=== PATIENT | male | born 1955 | race Caucasian/White ===

== ENCOUNTER 2016-11-12 19:44 | Observation (INO) | payer MEDICAID ==
[2016-11-12] MEDS: NITROSTAT SL PRN ×2 (20:13→20:59)
[2016-11-12] MEDS: ASPIRIN PO SCH (20:13)
--- NOTE | 2016-11-12 20:15 | DR.CP ---
HPI - Time Seen Time seen: 20:05 - PCP Primary Care Physician: ARAUJO - Complaint Chief Complaint Doctor Comments: Patient presents with c/o chest pain for the past three days worse today; pain radiating down left side of neck w/o diaphoresis. He admits to dyspnea. Stents ten years ago. Patient has NTG but did not take; make him have a headache. Chief Complaint:: MID STERNAL CHEST PAIN RADIATES LEFT NECK, SHORTNESS OF BREATH , CHILLS, NO APPETITE, WEAK, DIZZY FOR THE LAST 3 DAYS Self Treatment fo Chief Complaint: HAS NOT TAKEN HIS NTG BECAUSE IT GIVES HIM A POUNDING HEADACHE - Source History Provided: Patient, Significant Other - Mode of Arrival Mode of Arrival: Ambulatory - Timing Onset of Chief Complaint: 11/09/16 - Duration Duration: Since Onset (three days) How lon (3 days; worse today) Duration: Days - Location Location of Chest Pain: Right, Left Chest Pain Radiation Location: Left Arm - Context Onset: At rest Cardiac Risk Factors: Smoker, Hyperlipidemia, HTN History of: Similar pain in the past, [place], Angioplasty. denies: Aspirin in last 24 hours Prehospital Care: None. denies: Oxygen, SL Nitro, ASA - Quality Quality: Sharp - Severity Severity: Moderate (8) - Modifying Factors Worsens: Exertion Impoves: Nothing - Associated Signs and Symptoms Associated Signs and Symptoms: Shortness of Breath. denies: Diaphoresis, Abdominal Pain, Nausea/Vomiting PMH - PMH Past Medical History: Yes Past Medical History: Anxiety, Arthritis, COPD, Depression, Dyslipidemia, Headaches, [place] Past Medical History Comment: AORTIC ANEURYSM Past Surgical History: Yes Surgical History: Angioplasty/Stents, Ortho Surgery, Other Past Surgical History Comment: LEFT HIP REPLACEMENT, RIGHT WRIST (PLATE) - Family History History of Family Medical Conditions: Yes Family Medical History: Diabetes Mellitus, [place], Coronary Artery Disease - Social History Type of Tobacco Use: Cigarettes Alcohol Use: None Do you use any recreational Drugs:: No Lives With: Spouse Lives Where: Home - infectious screening Have you traveled outside the country in the last 6 months?: No Isolation: Standard ROS - Review of Systems Constitutional: See HPI Eyes: No Symptoms Reported ENTM: No Symptoms Reported Respiratoy: No Symptoms Reported Cardiovascular: No Symptoms Reported Gastrointestinal/Abdominal: No Symptoms Reported Genitourinary: No Symptoms Reported Neurological: No Symptoms Reported Musculoskeletal: No Symptoms Reported Integumentary: No Symptoms Reported Hematologic/Lymphatic: No Symptoms Reported Endocrine: No Symptoms Reported Psychiatric: No Symptoms Reported All Other Systems: Reviewed and Negative PE - Vitals Vitals: Temperature 97.8 F Pulse Rate [Apical] 60 Pulse Rate 70 Respiratory Rate 16 Blood Pressure [Right Arm] 123/76 Blood Pressure 133/79 O2 Sat by Pulse Oximetry 96 - General Limitations: No Limitations General Appearance: Alert, In No Apparent Distress - Head Head Exam: Normal Inspection, Atraumatic - Eyes Eye exam: Normal Appearance, PERRL, EOMI - ENT ENT Exam: Normal Exam - Chest Chest Inspection: Normal Inspection - Respiratory Respiratory Exam: Normal Lung Sounds Bilat Respiratory Exam: Bilateral Clear to Auscultation - Cardiovascular Cardiovascular Exam: Regular Rate, Normal Rhythm Pulse: Normal - Abdominal Exam Abdominal Exam: Normal Inspection Abdominal Tenderness: negative: RUQ, RLQ, LUQ, LLQ, Epigastrium, Suprapubic, Diffuse, Mild, Moderate, Severe, Other - Extremities Extremities Exam: Normal Inspection, Full ROM - Back Back Exam: Normal Inspection, Full ROM - Neurologic Neurological Exam: Alert, Oriented X3, CN II-XII Intact - Psychiatric Psychiatric Exam: Normal Affect, Normal Mood - Skin Skin Exam: Warm, Dry, Intact Course - Reevaluation 1st: Improved ( 2020 pain decreased to 3) - Consultation Called: 21:31 (Admit R/O [place]) ROR - Labs Reviewed Result Diagrams: 11/12/16 20:20 11/12/16 20:20 Laboratory: WBC 6.9 X10^3/uL (3.6-10.0) 11/12/16 20:20 RBC 4.73 X10^6/uL (4.7-6.0) 11/12/16 20:20 Hgb 14.6 g/dL (13.5-18.0) 11/12/16 20:20 Hct 43.6 % (42.0-54.0) 11/12/16 20:20 MCV 92.2 fL (80.0-100.0) 11/12/16 20:20 MCH 30.9 pg (27.0-34.0) 11/12/16 20:20 MCHC 33.5 g/dL (33.0-35.0) 11/12/16 20:20 RDW 12.8 % (11.6-16.5) 11/12/16 20:20 Plt Count 130 X10^3/uL (150.0-450.0) L 11/12/16 20:20 Plt Count Comment Decreased (ADEQUATE) 11/12/16 20:20 MPV 9.2 fL (7.4-11.0) 11/12/16 20:20 Neut % 56.5 % (42.0-75.0) 11/12/16 20:20 Lymph % 28.2 % (21.0-51.0) 11/12/16 20:20 [place] % 9.3 % (0.0-13.0) 11/12/16 20:20 Eos % 4.9 % (0.9-2.9) H 11/12/16 20:20 Baso % 1.1 % (0.2-1.0) H 11/12/16 20:20 Neut # 3.9 x10^3/uL (2.2-4.8) 11/12/16 20:20 Lymph # 2.0 X10^3/uL (1.3-2.9) 11/12/16 20:20 [place] # 0.6 x10^3/uL (0.3-0.8) 11/12/16 20:20 Eos # 0.3 x10^3/uL (0.0-0.2) H 11/12/16 20:20 Baso # 0.1 X10^3/uL (0.0-0.1) 11/12/16 20:20 Absolute Nucleated RBC 0.1 /100WBC 11/12/16 20:20 Plt Morphology Comment Normal (NORMAL) 11/12/16 20:20 RBC Morphology Normal (NORMAL) 11/12/16 20:20 INR Target Range - 11/12/16 20:20 INR 1.11 (0.8-1.3) 11/12/16 20:20 PTT 21.3 SECONDS (22.9-36.5) L 11/12/16 20:20 PTT Comment - 11/12/16 20:20 Sodium 146 mmol/L (136-145) H 11/12/16 20:20 Corrected Sodium TNP 11/12/16 20:20 Potassium 4.1 mmol/L (3.5-5.1) 11/12/16 20:20 Chloride 112 mmol/L (98-107) H 11/12/16 20:20 Carbon Dioxide 25.8 mmol/L (21-32) 11/12/16 20:20 BUN 10 mg/dL (7-18) 11/12/16 20:20 Creatinine 0.94 mg/dL (0.70-1.30) 11/12/16 20:20 Est GFR (MDRD) Af Amer > 60 (>60) 11/12/16 20:20 Est GFR (MDRD) Non-Af > 60 (>60) 11/12/16 20:20 Glucose 91 mg/dL (65-99) 11/12/16 20:20 Calcium 8.7 mg/dL (8.5-10.1) 11/12/16 20:20 Corrected Calcium 9.3 mg/dL (8.5-10.1) 11/12/16 20:20 Phosphorus 3.1 mg/dL (2.6-4.7) 11/12/16 20:20 Total Bilirubin 0.30 mg/dL (0.2-1.0) 11/12/16 20:20 AST 27 Units/L (15-37) 11/12/16 20:20 ALT 39 Units/L (12-78) 11/12/16 20:20 Alkaline Phosphatase 85 Units/L (46-116) 11/12/16 20:20 Creatine Kinase 142 Units/L (39-308) 11/12/16 20:20 CK-MB (CK-2) 1.3 ng/mL (0-4.0) 11/12/16 20:20 CK/CKMB % Calc 0.9 % (<4) 11/12/16 20:20 Troponin I 0.02 ng/mL (0-1.5) 11/12/16 20:20 Total Protein 6.8 g/dL (6.4-8.2) 11/12/16 20:20 Albumin 3.3 g/dL (3.4-5.0) L 11/12/16 20:20 Globulin 3.5 g/dL (2.5-4.5) 11/12/16 20:20 Albumin/Globulin Ratio 0.9 Ratio (1.1-2.1) L 11/12/16 20:20 - XRAY XRAY Interpreted by: Radiologist (Chest: no acute cardiopulmonary disease) - EKG Rhythm: NSR Block: RBBB - Diagnosis Discharge Problem: Chest pain with high risk for cardiac etiology, Chest pain, rule out acute myocardial infarction - Discharge Plan Condition: Stable - Follow ups/Referrals Follow ups/Referrals: ALEXA ARAUJO [Primary Care Provider] - 3 days - Instructions
[2016-11-12] MEDS: NS 1000 ML 1,000 ML IV SCH (20:17)
--- NOTE | 2016-11-12 20:41 | RAD ---
HISTORY: Chest pain Study: Chest one view Comparison: February 29, 2016 Findings: The trachea is midline. The cardiac silhouette is unremarkable. The lungs are clear without focal infiltrate or effusion. The bony thorax is unremarkable. IMPRESSION: 1. No acute cardiopulmonary disease. Reported By:
[2016-11-12 20:42] LABS: BASOPHILS # (AUTO) 0.1 X10^3/uL (0.0-0.1); BASOPHILS % (AUTO) 1.1 % (0.2-1.0); EOSINOPHILS # (AUTO) 0.3 x10^3/uL (0.0-0.2); EOSINOPHILS % (AUTO) 4.9 % (0.9-2.9); HEMATOCRIT 43.6 % (42.0-54.0); HEMOGLOBIN 14.6 g/dL (13.5-18.0); LYMPHOCYTES % (AUTO) 28.2 % (21.0-51.0); MEAN CORPUSCULAR HEMOGLOBIN 30.9 pg (27.0-34.0); MEAN CORPUSCULAR HGB CONC 33.5 g/dL (33.0-35.0); MEAN CORPUSCULAR VOLUME 92.2 fL (80.0-100.0); MEAN PLATELET VOLUME 9.2 fL (7.4-11.0); MONOCYTES # (AUTO) 0.6 x10^3/uL (0.3-0.8); MONOCYTES % (AUTO) 9.3 % (0.0-13.0); NEUTROPHILS # (AUTO) 3.9 x10^3/uL (2.2-4.8); NEUTROPHILS % (AUTO) 56.5 % (42.0-75.0); PLATELET COUNT 130 X10^3/uL (150.0-450.0); RED BLOOD COUNT 4.73 X10^6/uL (4.7-6.0); RED CELL DISTRIBUTION WIDTH 12.8 % (11.6-16.5); WHITE BLOOD COUNT 6.9 X10^3/uL (3.6-10.0)
[2016-11-12 21:02] LABS: ALANINE AMINOTRANSFERASE 39 Units/L (12-78); ALBUMIN 3.3 g/dL (3.4-5.0); ALKALINE PHOSPHATASE 85 Units/L (46-116); ASPARTATE AMINO TRANSFERASE 27 Units/L (15-37); BLOOD UREA NITROGEN 10 mg/dL (7-18); CALCIUM 8.7 mg/dL (8.5-10.1); CARBON DIOXIDE 25.8 mmol/L (21-32); CHLORIDE 112 mmol/L (98-107); CKMB % 0.9 % (<4); COR CA(FOR HYPOALB) 9.3 mg/dL (8.5-10.1); CREATINE KINASE 142 Units/L (39-308); CREATINE KINASE MB 1.3 ng/mL (0-4.0); CREATININE 0.94 mg/dL (0.70-1.30); GLUCOSE 91 mg/dL (65-99); PHOSPHORUS 3.1 mg/dL (2.6-4.7); SODIUM 146 mmol/L (136-145); TOTAL PROTEIN 6.8 g/dL (6.4-8.2); TROPONIN I 0.02 ng/mL (0-1.5); eGFR BLACK RACES > 60 (>60); eGFR NON BLACK RACES > 60 (>60)
[2016-11-12 21:03] LABS: PLATELET MORPHOLOGY COMMENT NORMAL (NORMAL)
[2016-11-12] MEDS ORDERED: MORPHINE SULFATE INJ 4 MG IVP ONE (21:06)
[2016-11-12] MEDS ORDERED: MORPHINE SULFATE INJ 4 MG ONE (21:06)
[2016-11-12] MEDS ORDERED: MORPHINE SULFATE INJ 2 MG IVP ONE (21:34)
[2016-11-12] MEDS ORDERED: MORPHINE SULFATE INJ 2 MG ONE (21:57)
[2016-11-12] MEDS ORDERED: AFLURIA IM ONE (22:44)
[2016-11-12 22:48] VITALS: BMI 27.1
[2016-11-13 03:11] LABS: CKMB % 1.5 % (<4); CREATINE KINASE MB 1.2 ng/mL (0-4.0); TROPONIN I 0.02 ng/mL (0-1.5)
[2016-11-13] MEDS ORDERED: AFLURIA IM ONE (05:34)
[2016-11-13 05:52] LABS: ALANINE AMINOTRANSFERASE 33 Units/L (12-78); ALKALINE PHOSPHATASE 81 Units/L (46-116); ASPARTATE AMINO TRANSFERASE 27 Units/L (15-37); BLOOD UREA NITROGEN 10 mg/dL (7-18); CALCIUM 8.3 mg/dL (8.5-10.1); CHLORIDE 114 mmol/L (98-107); CHOL/HDL RATIO 3.4 (0.0-5.0); CHOLESTEROL 96 mg/dL (0-200); COR CA(FOR HYPOALB) 9.1 mg/dL (8.5-10.1); CREATININE 0.87 mg/dL (0.70-1.30); GLUCOSE 104 mg/dL (65-99); HDL CHOLESTEROL 28 mg/dL (40-60); SODIUM 146 mmol/L (136-145); TOTAL PROTEIN 6.2 g/dL (6.4-8.2); TRIGLYCERIDES 126 mg/dL (0-150); eGFR BLACK RACES > 60 (>60); eGFR NON BLACK RACES > 60 (>60)
[2016-11-13] MEDS: NS 1000 ML 1,000 ML IV SCH (06:00)
[2016-11-13 06:58] LABS: BASOPHILS # (AUTO) 0.1 X10^3/uL (0.0-0.1); BASOPHILS % (AUTO) 1.7 % (0.2-1.0); EOSINOPHILS # (AUTO) 0.4 x10^3/uL (0.0-0.2); EOSINOPHILS % (AUTO) 5.3 % (0.9-2.9); HEMATOCRIT 41.3 % (42.0-54.0); HEMOGLOBIN 13.8 g/dL (13.5-18.0); LYMPHOCYTES # (AUTO) 2.4 X10^3/uL (1.3-2.9); LYMPHOCYTES % (AUTO) 33.6 % (21.0-51.0); MEAN CORPUSCULAR HGB CONC 33.3 g/dL (33.0-35.0); MEAN CORPUSCULAR VOLUME 93.1 fL (80.0-100.0); MEAN PLATELET VOLUME 9.1 fL (7.4-11.0); MONOCYTES # (AUTO) 0.6 x10^3/uL (0.3-0.8); NEUTROPHILS # (AUTO) 3.6 x10^3/uL (2.2-4.8); NEUTROPHILS % (AUTO) 51.4 % (42.0-75.0); PLATELET COUNT 159 X10^3/uL (150.0-450.0); RED BLOOD COUNT 4.43 X10^6/uL (4.7-6.0); RED CELL DISTRIBUTION WIDTH 12.9 % (11.6-16.5)
--- NOTE | 2016-11-13 07:16 | RAD ---
HISTORY: Chest pain Study: Chest one view Comparison: November 12, 2016 Findings: The heart is upper limits normal in size. No congestive heart failure is noted. The lungs are free o f acute alveolar infiltrates. No pleural effusions are identified. The bony thorax is unremarkable. IMPRESSION: No acute cardiopulmonary abnormality Reported By:
[2016-11-13 08:58] LABS: CKMB % 1.6 % (<4); CREATINE KINASE MB 1.1 ng/mL (0-4.0); TROPONIN I 0.03 ng/mL (0-1.5)
[2016-11-13] MEDS: ASPIRIN PO SCH (10:13)
[2016-11-13 12:18] VITALS: BP 119/69
== END 2016-11-13 13:43 | disposition home or self-care (01) ==
LOC: ER 19:44 → OBS 21:32
PROVIDERS: ADMIT Obstetrics & Gynecology Obstetrics; ATTEND Obstetrics & Gynecology Obstetrics
PROC: 3E0234Z Introduction of Serum, Toxoid and Vaccine into Muscle, Percutaneous Approach (ICD-10-PCS; principal; 2016-11-13)
DX: R07.2 Precordial pain (principal); R06.09 Other forms of dyspnea; R06.02 Shortness of breath; R63.0 Anorexia; R53.1 Weakness; R42 Dizziness and giddiness; M13.89 Other specified arthritis, multiple sites; J44.9 Chronic obstructive pulmonary disease, unspecified; E78.2 Mixed hyperlipidemia; R51 Headache; R94.31 Abnormal electrocardiogram [ECG] [EKG]; Z79.01 Long term (current) use of anticoagulants; Z23 Encounter for immunization
CPT/HCPCS: 36415; 71010; 80053; 80061; 82550; 82553; 84100; 84484; 85025; 85610; 85730; 90686; 93005; 93010; 93041; 94760; 96365; 96367; 96374; 96375; 99284; A4222; G0378; J2270

== ENCOUNTER → 2016-11-20 | Outpatient (CLI) | payer MEDICAID ==
[2016-11-13 12:18] VITALS: BP 119/69
--- NOTE | 2016-11-21 18:26 | MRI ---
Indication: Neck pain. Exam: MRI cervical spine. Technique: Routine multiplanar multisequence imaging was performed through the cervical spine withou t contrast . Findings: The cervical vertebra are well aligned. No fracture or subluxation is seen. There is mild to moderate disc space narrowing throughout. There is a small disc osteophyte complex at C3-4 causin g moderate anterior dural sac effacement . There is a small disc osteophyte complex at C4-5 laterali zing to the right causing mild anterolateral dural sac effacement . There is a moderate disk osteoph yte complex at C5-6 lateralizes slightly to the right causing moderate anterolateral dural sac effac ement and slight cord effacement anterolaterally on the right. There is a moderate disk osteophyte c omplex at C6-7 lateralizing to the left causing moderate anterolateral dural sac effacement and ques tionable slight cord effacement. The bone marrow signal is normal throughout. The craniocervical jerrica ction is unremarkable. The cervical cord is normal size and signal intensity throughout. The bone ma rrow signal is normal throughout an the prevertebral soft tissues normal . Impression: Moderate degenerative disk changes throughout the lower cervical spine with no acute abnormality see n. Moderate asymmetric disc osteophyte complex at C5-6 causing mild cord effacement anterolaterally on the right . Moderate asymmetric disc osteophyte complex at C6-7 lateralizing to the left causing slight cord eff acement anterolaterally on the left . Mild to moderate disc osteophyte complexes at C3-4 and C4-5 causing mild to moderate dural sac effac ement. Reported By:
== END ==
LOC: RAD 15:01
PROVIDERS: ATTEND Obstetrics & Gynecology Obstetrics
DX: M47.812 Spondylosis without myelopathy or radiculopathy, cervical region (principal); M54.2 Cervicalgia
CPT/HCPCS: 72141

== ENCOUNTER → 2018-01-04 | Outpatient (CLI) | payer SELFPAY ==
[~2018-01-04] MED LIST: NS 100 ML IV 100 ML IV ONE
[2018-01-04 10:57] LABS: BASOPHILS # (AUTO) 0.1 X10^3/uL (0.0-0.1); BASOPHILS % (AUTO) 0.8 % (0.2-1.0); EOSINOPHILS # (AUTO) 0.3 x10^3/uL (0.0-0.2); EOSINOPHILS % (AUTO) 4.1 % (0.9-2.9); HEMATOCRIT 45.2 % (42.0-54.0); HEMOGLOBIN 15.4 g/dL (13.5-18.0); LYMPHOCYTES # (AUTO) 1.8 X10^3/uL (1.3-2.9); LYMPHOCYTES % (AUTO) 25.8 % (21.0-51.0); MEAN CORPUSCULAR HEMOGLOBIN 31.4 pg (27.0-34.0); MEAN CORPUSCULAR VOLUME 92.2 fL (80.0-100.0); MEAN PLATELET VOLUME 8.7 fL (7.4-11.0); MONOCYTES # (AUTO) 0.5 x10^3/uL (0.3-0.8); MONOCYTES % (AUTO) 7.4 % (0.0-13.0); NEUTROPHILS # (AUTO) 4.4 x10^3/uL (2.2-4.8); NEUTROPHILS % (AUTO) 61.9 % (42.0-75.0); PLATELET COUNT 184 X10^3/uL (150.0-450.0); RED CELL DISTRIBUTION WIDTH 13.1 % (11.6-16.5); WHITE BLOOD COUNT 7.1 X10^3/uL (3.6-10.0)
[2018-01-04 11:16] LABS: ALANINE AMINOTRANSFERASE 34 Units/L (12-78); ALBUMIN 3.6 g/dL (3.4-5.0); ALKALINE PHOSPHATASE 103 Units/L (46-116); ASPARTATE AMINO TRANSFERASE 21 Units/L (15-37); CALCIUM 9.2 mg/dL (8.5-10.1); CARBON DIOXIDE 26.7 mmol/L (21-32); CHLORIDE 110 mmol/L (98-107); CHOL/HDL RATIO 3.7 (0.0-5.0); CHOLESTEROL 146 mg/dL (0-200); HDL CHOLESTEROL 39 mg/dL (40-60); SODIUM 145 mmol/L (136-145); TOTAL PROTEIN 7.5 g/dL (6.4-8.2); TRIGLYCERIDES 81 mg/dL (0-150); eGFR BLACK RACES > 60 (>60); eGFR NON BLACK RACES > 60 (>60)
[2018-01-04 11:25] LABS: BLOOD UREA NITROGEN 10 mg/dL (7-18); CREATININE 1.05 mg/dL (0.70-1.30)
[2018-01-04 11:37] LABS: TOTAL PSA 0.66 ng/mL (0.13-4.0)
--- NOTE | 2018-01-04 12:58 | CT ---
STUDY: CTA CHEST WITH CONTRAST History: Follow-up thoracic aortic aneurysm from previous scan July 11, 2016. Comparison: July 11, 2016. Technique: Multiple axial images of the chest were obtained from the thoracic inlet to the upper abdo men after the administration of IV contrast. Image acquisition was optimized for evaluation of pulmon jamar arterial system. 3D, coronal and sagittal reformatted images were performed and reviewed. Automat ed exposure control (AEC) was utilized to adjust the MA and/or kV. Findings: There is no evidence of abnormal filling defect in the main pulmonary arteries and their major branch es to indicate presence of acute pulmonary thromboembolic disease. The ascending thoracic aorta measu res approximately 4.1 cm maximum AP dimension. This is not significantly changed since the prior stud y. There is no evidence of aortic dissection. There is no significant pericardial effusion. Multiple lymph nodes are noted in the mediastinum and right hilum. The largest of these measure appro ximately 1.6 cm in maximum dimension. This represents a decrease in size since the prior study. Mild emphysematous changes are noted in both upper lobes. There is mild atelectasis in the dependent portions of both lungs. There is no evidence of consolidation, significant infiltrate, effusion or pn eumothorax. Goal there gallstones in the gallbladder. IMPRESSION: 1. No evidence of acute pulmonary thromboembolic disease. 2. No significant change in AP dimension of the ascending thoracic aorta which measures approximately 4.1 cm maximum AP dimension. 3. No acute pulmonary abnormality. Emphysematous change as described. Reported By:
== END ==
LOC: RAD 10:07
PROVIDERS: ATTEND Obstetrics & Gynecology Obstetrics
DX: E29.1 Testicular hypofunction (principal); I25.10 Atherosclerotic heart disease of native coronary artery without angina pectoris; R39.12 Poor urinary stream; I71.2 Thoracic aortic aneurysm, without rupture
CPT/HCPCS: 71275; 80053; 80061; 82670; 83525; 84153; 84403; 85025; A4222

== ENCOUNTER → 2018-01-12 | Outpatient (CLI) | payer SELFPAY ==
[2018-01-12 15:38] LABS: TSH (3RD GENERATION) 1.493 uIU/mL (0.358-3.74)
== END ==
LOC: LAB 14:45
PROVIDERS: ATTEND Obstetrics & Gynecology Obstetrics
DX: G90.09 Other idiopathic peripheral autonomic neuropathy (principal); E03.8 Other specified hypothyroidism
CPT/HCPCS: 36415; 82607; 82746; 84425; 84443; 84481; 84482